=== PATIENT | female | born 1935 | race Two or more races ===

== ENCOUNTER 2017-10-13 07:50 | Outpatient (CLI) | payer OTHER ==
[~2017-10-13 07:50] MED LIST: CARDURA8 MG; HYDROCHLOROTHIA25 MG; METFORMIN HCL500 M1; SIMVASTATIN40 MG; TOPROL XL50 M1; ZOLOFT100 MG
== END 2017-10-13 07:57 | disposition home or self-care (01) ==
LOC: MAMO-SONO 07:50
DX: Z12.31 Encounter for screening mammogram for malignant neoplasm of breast (principal); Z87.898 Personal history of other specified conditions; N63.10 Unspecified lump in the right breast, unspecified quadrant; N63.20 Unspecified lump in the left breast, unspecified quadrant

== ENCOUNTER 2018-03-08 09:25 | Outpatient (CLI) | payer OTHER | END 2018-03-08 09:32 | disposition home or self-care (01) | LOC: SONOGRAMA 09:25 | DX: N63.22 Unspecified lump in the left breast, upper inner quadrant (principal) ==

== ENCOUNTER 2019-02-01 09:31 | Outpatient (CLI) | payer OTHER | END 2019-02-01 09:40 | disposition home or self-care (01) | LOC: MAMO-SONO 09:31 | DX: Z12.31 Encounter for screening mammogram for malignant neoplasm of breast (principal); Z87.898 Personal history of other specified conditions ==

== ENCOUNTER 2020-09-18 08:51 | Outpatient (CLI) | payer OTHER | END 2020-09-18 09:16 | disposition home or self-care (01) | LOC: MAMO-SONO 08:51 | DX: I51.7 Cardiomegaly (principal); Z12.31 Encounter for screening mammogram for malignant neoplasm of breast; N64.59 Other signs and symptoms in breast; J44.9 Chronic obstructive pulmonary disease, unspecified; M81.0 Age-related osteoporosis without current pathological fracture; Z12.89 Encounter for screening for malignant neoplasm of other sites ==

== ENCOUNTER 2020-10-27 09:50 | Outpatient (CLI) | payer OTHER | END 2020-10-27 09:56 | disposition home or self-care (01) | LOC: NUCLEAR 09:50 | DX: M81.0 Age-related osteoporosis without current pathological fracture (principal) ==

== ENCOUNTER → 2022-05-06 | Outpatient (CLI) | payer OTHER | END | disposition home or self-care (01) | LOC: NUCLEAR 09:00 | DX: R06.02 Shortness of breath (principal) ==